=== PATIENT | male | born 1990 | race Caucasian/White ===

== ENCOUNTER 2016-12-07 12:26 | Emergency (ER) | payer OTHER ==
[~2016-12-07] VITALS: Ht 185.4 cm; Wt 94.4 kg
[~2016-12-07 12:26] MED LIST: GABAPENTIN100 MG PO; KEFLEX500 MG PO; MELOXICAM15 MG PO; OXAYDO5 MG PO; PERCOCET 5/31 TABLET PO
[2016-12-07 13:26] LABS: HEMATOCRIT 43.4 % (38.0-50.0); MCH 29.6 PG (29.0-34.0); MCHC 34.1 G/DL (30.0-36.0); MCV 86.8 FL (86-99); MEAN PLAT.VOLUME 10.5 uM^3 (9.0-12.4); PLATELET COUNT 220 K/uL (156-360); RBC DIS.WIDTH-CV 11.6 % (11.8-14.6); RBC DIS.WIDTH-SD 36.8 % (39-53); WHITE BLOOD COUNT 5.8 K/uL (4.1-10.2)
[2016-12-07 13:35] LABS: CHLORIDE 105 mEq/L (99-109); POTASSIUM 4.5 mEq/L (3.7-5.4); SODIUM 141 mEq/L (136-147)
[2016-12-07 13:37] LABS: GLUCOSE 107 mg/dL (70-99)
[2016-12-07 13:38] LABS: ANION GAP 12 MEQ/L (2-14)
[2016-12-07 13:39] LABS: TOTAL BILIRUBIN 0.4 mg/dL (0.0-1.0)
[2016-12-07 13:40] LABS: ALKALINE PHOSPHATASE 97 IU/L (3-129)
[2016-12-07 13:41] LABS: GFR ESTIMATE (CALCULATED) > 59 mL/min/
[2016-12-07 13:42] LABS: UREA NITROGEN (BUN) 14 mg/dL (9-23)
[2016-12-07 13:44] LABS: LIPASE 25 U/L (1.0-51.0)
[2016-12-07 15:10] LABS: ADD MIUA? NO; BILIRUBIN NEGATIVE; BLOOD NEGATIVE; COLOR STRAW ((YELLOW)); GLUCOSE (STRIP) NEGATIVE; KETONES NEGATIVE; LEUKOCYTES NEGATIVE; NITRITE NEGATIVE; PROTEIN (STRIP) NEGATIVE; SPECIFIC GRAVITY 1.013 (1.000-1.030); UCUL ADDED? NO; UROBILINOGEN 0.2 MG/DL (0.2-1.0)
[2016-12-07] MEDS ORDERED: BENTYL10 MG PO (15:30)
[2016-12-07 16:19] VITALS: BP 126/73
== END 2016-12-07 16:24 | disposition home or self-care (01) ==
LOC: EME 12:26
PROVIDERS: Physician Assistant Medical
DX: R10.31 Right lower quadrant pain (principal); R07.9 Chest pain, unspecified; R11.0 Nausea; R42 Dizziness and giddiness; N20.0 Calculus of kidney; F17.200 Nicotine dependence, unspecified, uncomplicated
CPT/HCPCS: 74177; 80053; 81003; 83690; 85027; 99281; 99285; J2270; J2405; J7030

== ENCOUNTER → 2016-12-17 | Outpatient (CLI) | payer OTHER ==
[~2016-12-17] MED LIST changes: +BENTYL10 MG PO
== END | disposition home or self-care (01) ==
LOC: NUC 06:41
DX: R10.33 Periumbilical pain (principal); K21.9 Gastro-esophageal reflux disease without esophagitis; R19.7 Diarrhea, unspecified
CPT/HCPCS: 78226; A9537